=== PATIENT | female | born 1990 | race Caucasian/White ===

== ENCOUNTER 2016-11-11 14:14 | Emergency (ER) | payer BC ==
[~2016-11-11] VITALS: Ht 172.7 cm; Wt 120.6 kg
[2016-11-11 14:26] VITALS: TEMP 37.1; Ht 172.7 cm; Wt 120.6 kg
[2016-11-11] MEDS ORDERED: ALBUT/IPRATROP 3MG/0.5MG NEB 3 ML VIAL INH STA (16:24)
[2016-11-11 16:25] VITALS: O2SAT 98
[2016-11-11 16:39] LABS: BASO % 0.8 %; BASO ABS # 0.07 K/uL (0-0.2); COMPLETE YES; EOS % 2.3 %; HEMATOCRIT 40.1 % (37-47); IG% 0.1 %; LYMPH % 23.3 %; LYMPH ABS # 2.06 K/uL (1.2-3.4); MEAN CELL VOLUME 87.7 fL (80-100); MEAN CORPUSCULAR HEMOGLOBIN 30.6 pg (25-34); MEAN CORPUSCULAR HGB CONC 34.9 g/dl (32-36); MEAN PLATELET VOLUME 9.5 fL (7.4-10.4); MONO % 6.5 %; PLATELET COUNT 462 K/uL (130-400); RED BLOOD COUNT 4.57 M/uL (4.2-5.4); WHITE BLOOD COUNT 8.83 K/uL (4.8-10.8)
[2016-11-11 16:58] LABS: CALCIUM 9.5 mg/dl (8.5-10.1); CREATININE 0.84 mg/dl (0.60-1.20); POTASSIUM 3.7 mmol/L (3.5-5.1)
[2016-11-11 17:01] LABS: ALB/GLOB RATIO 0.8 (0.9-2)
[2016-11-11 17:04] LABS: PARTIAL THROMBOPLASTIN RATIO 1.7; PROTHROMBIN TIME (PATIENT) 10.4 SECONDS (9.0-12.0)
--- NOTE | 2016-11-11 17:10 | DIAGNOSTIC IMAGING REPORT ---
CHEST 2 VIEWS ROUTINE CLINICAL HISTORY: cough, sob dyspnea COMPARISON STUDY: No previous studies for comparison. FINDINGS: The bones soft tissues and hemidiaphragms are normal. The cardiomediastinal silhouette is normal. The lungs are clear. The pulmonary vasculature is normal. IMPRESSION: Negative chest. Electronically signed by: Cornel Agudelo M.D. 11/11/2016 5:09 PM Dictated Date/Time: 11/11/2016 5:08 PM
[2016-11-11] MEDS ORDERED: OPTIRAY 320 IV PRN (17:15)
--- NOTE | 2016-11-11 17:30 | DIAGNOSTIC IMAGING REPORT ---
CHEST CTA for PULMONARY ARTERIES CT DOSE: 549.18 mGy.cm HISTORY: Chest pain Dyspnea TECHNIQUE: Multiaxial CT images of the chest were performed following the intravenous administration of contrast to evaluate the pulmonary arteries. Maximal intensity projection images were also obtained. COMPARISON STUDY: None. FINDINGS: There is a normal caliber thoracic aorta with no evidence for dissection. There is no evidence for pulmonary embolus. No pleural effusions. No pneumothorax. The liver and spleen are unremarkable. No mediastinal or hilar lymphadenopathy. The central airways are patent. The lungs demonstrate an infiltrate left lower lobe primarily identified medially. IMPRESSION: 1. No evidence for pulmonary embolus. 2. Infiltrate medial aspect left lower lobe Electronically signed by: Cornel Agudelo M.D. 11/11/2016 5:29 PM Dictated Date/Time: 11/11/2016 5:26 PM
[2016-11-11] MEDS ORDERED: BCPILLS PO (17:31)
[2016-11-11] MEDS ORDERED: LEVO150T9 PO (17:31)
[2016-11-11] MEDS ORDERED: CETI10TA10 PO (17:32)
[2016-11-11] MEDS ORDERED: IBUP-1050 PO (17:33)
[2016-11-11] MEDS ORDERED: [UNRECOGNIZED DRUG - OTHER] PO (17:36)
[2016-11-11] MEDS ORDERED: GUAI100S16 PO (17:43)
[2016-11-11] MEDS ORDERED: METHYLPREDNISOLONE 125 MG VIAL IV STA (17:57)
[2016-11-11] MEDS ORDERED: AZITHROMYCIN 250 MG TAB PO STA (17:58)
[2016-11-11] MEDS ORDERED: ALBUTEROL HFA 8 GM INHALER INH ONE (18:00)
[2016-11-11] MEDS ORDERED: METH4PAK PO (18:01)
[2016-11-11] MEDS ORDERED: AZIT250T PO (18:01)
--- NOTE | 2016-11-11 18:02 | EMERGENCY ROOM VISIT NOTE ---
History First contact with patient: 16:12 Chief Complaint: SHORTNESS OF BREATH Stated Complaint: SOB,SEVERE COUGH History of Present Illness The patient is a 26 year old female who presents to the Emergency Room with complaints of cough and shortness of breath. The patient states that she has been ill for the past 3 weeks. She reports that initially, she had laryngitis and a sore throat. The symptoms resolved, and the patient later developed a severe cough. She reports that over the past 3-4 days, she has had a cough productive of greenish mucus as well as tightness in her chest. She states that she has had a few episodes of vomiting due to the cough. At times, she has had blood-tinged sputum. The patient does report that classmates have been sick with similar symptoms. Prior to the onset of symptoms, she did travel back from [place] on a bus trip. She does take control pills but denies smoking. She denies any history of asthma or history of blood clots. She denies any family history of blood clots. The patient denies any chest pain , abdominal pain, nausea, headache, earaches or neck pain. Review of Systems A complete 10-point Review of Systems was discussed with the patient, with pertinent positives and negatives listed in the History of Present Illness. All remaining Review of Systems questions can be considered negative unless otherwise specified. Social History Smoking Status: Never Smoker Current/Historical Medications Scheduled Azithromycin (Zithromax), 250 MG PO DAILY Control Pills ( Control Pills), 1 TAB PO DAILY Guaifenesin (Guaifenesin), 10 ML PO DAILY Ibuprofen (Advil), 400 MG PO DAILY Levothyroxine Sodium (Levothyroxine Sodium), 1 TAB PO DAILY Methylprednisolone (Medrol Dosepak), 0 PO DAILY [Sudophedrine], 1 CAP PO Q12 Scheduled PRN Cetirizine Hcl (Zyrtec), 10 MG PO DAILY PRN for ALLERGIC REACTION Allergies Coded Allergies: No Known Allergies (Unverified , 11/11/16) Physical Exam Vital Signs Date Time Temp Pulse Resp B/P Pulse Ox O2 Delivery O2 Flow Rate FiO2 11/11/16 18:12 96 20 154/86 98 Room Air 11/11/16 17:28 112 20 139/87 99 Room Air 11/11/16 16:28 111 11/11/16 16:25 98 Room Air 11/11/16 16:25 101 22 133/108 98 Room Air 11/11/16 14:29 99 Room Air 11/11/16 14:26 37.1 120 20 125/84 98 Room Air Physical Exam VITALS: Vitals are noted on the nurse's note and reviewed by myself. Vital signs stable. GENERAL: This is a 26-year-old female, in no acute distress, nondiaphoretic, well-developed well-nourished. SKIN: Capillary reflex less than 2 seconds. HEENT: Normocephalic. PERRLA. EOMI. Nares patent. Mucous membranes moist. Neck is supple without nuchal rigidity. No lymphadenopathy. HEART: Tachycardic, regular rhythm without murmurs gallops or rubs. LUNGS: Scattered inspiratory and expiratory wheezes throughout. ABDOMEN: Positive bowel sounds x 4. Soft, nontender to palpation. NEURO: Patient was alert and oriented to person place and time. Medical Decision & Procedures ER Provider Diagnostic Interpretation: CHEST 2 VIEWS ROUTINE FINDINGS: The bones soft tissues and hemidiaphragms are normal. The cardiomediastinal silhouette is normal. The lungs are clear. The pulmonary vasculature is normal. IMPRESSION: Negative chest. CHEST CTA for PULMONARY ARTERIES FINDINGS: There is a normal caliber thoracic aorta with no evidence for dissection. There is no evidence for pulmonary embolus. No pleural effusions. No pneumothorax. The liver and spleen are unremarkable. No mediastinal or hilar lymphadenopathy. The central airways are patent. The lungs demonstrate an infiltrate left lower lobe primarily identified medially. IMPRESSION: 1. No evidence for pulmonary embolus. 2. Infiltrate medial aspect left lower lobe Laboratory Results 11/11/16 16:27 Red Blood Count 4.57, Mean Corpuscular Volume 87.7, Mean Corpuscular Hemoglobin 30.6, Mean Corpuscular Hemoglobin Concent 34.9, Mean Platelet Volume 9.5, Neutrophils (%) (Auto) 67.0, Lymphocytes (%) (Auto) 23.3, Monocytes (%) (Auto) 6.5, Eosinophils (%) (Auto) 2.3, Basophils (%) (Auto) 0.8, Neutrophils # (Auto) 5.92, Lymphocytes # (Auto) 2.06, Monocytes # (Auto) 0.57, Eosinophils # (Auto) 0.20, Basophils # (Auto) 0.07 11/11/16 16:27 Test 11/11/16 16:27 11/11/16 16:35 White Blood Count 8.83 K/uL (4.8-10.8) Red Blood Count 4.57 M/uL (4.2-5.4) Hemoglobin 14.0 g/dL (12.0-16.0) Hematocrit 40.1 % (37-47) Mean Corpuscular Volume 87.7 fL (80-100) Mean Corpuscular Hemoglobin 30.6 pg (25-34) Mean Corpuscular Hemoglobin Concent 34.9 g/dl (32-36) Platelet Count 462 K/uL (130-400) Mean Platelet Volume 9.5 fL (7.4-10.4) Neutrophils (%) (Auto) 67.0 % Lymphocytes (%) (Auto) 23.3 % Monocytes (%) (Auto) 6.5 % Eosinophils (%) (Auto) 2.3 % Basophils (%) (Auto) 0.8 % Neutrophils # (Auto) 5.92 K/uL (1.4-6.5) Lymphocytes # (Auto) 2.06 K/uL (1.2-3.4) Monocytes # (Auto) 0.57 K/uL (0.11-0.59) Eosinophils # (Auto) 0.20 K/uL (0-0.5) Basophils # (Auto) 0.07 K/uL (0-0.2) RDW Standard Deviation 41.8 fL (36.4-46.3) RDW Coefficient of Variation 13.1 % (11.5-14.5) Immature Granulocyte % (Auto) 0.1 % Immature Granulocyte # (Auto) 0.01 K/uL (0.00-0.02) Prothrombin Time 10.4 SECONDS (9.0-12.0) Prothromb Time International Ratio 1.0 (0.9-1.1) Activated Partial Thromboplast Time 44.6 SECONDS (21.0-31.0) Partial Thromboplastin Ratio 1.7 Anion Gap 8.0 mmol/L (3-11) Est Creatinine Clear Calc Drug Dose 136.3 ml/min Estimated GFR () 109.6 Estimated GFR (Non- 94.6 BUN/Creatinine Ratio 14.0 (10-20) Calcium Level 9.5 mg/dl (8.5-10.1) Total Bilirubin 0.2 mg/dl (0.2-1) Aspartate Amino Transf (AST/SGOT) 22 U/L (15-37) Alanine Aminotransferase (ALT/SGPT) 47 U/L (12-78) Alkaline Phosphatase 96 U/L (45-117) Total Protein 8.5 gm/dl (6.4-8.2) Albumin 3.7 gm/dl (3.4-5.0) Globulin 4.8 gm/dl (2.5-4.0) Albumin/Globulin Ratio 0.8 (0.9-2) Bedside D-Dimer > 450 ng/mlFEU (0-450) Bedside Troponin I 0.000 ng/ml (0-0.045) Medications Administered Medications (Trade) Dose Ordered Sig/Marivel Route Start Time Stop Time Status Last Admin Dose Admin Albuterol/ Ipratropium (Duoneb) 3 ml NOW STAT INH 11/11/16 16:24 11/11/16 16:27 DC 11/11/16 16:38 3 ML Methylprednisolone Sodium Succinate (Solu-Medrol IV) 125 mg NOW STAT IV 11/11/16 17:57 11/11/16 17:59 DC 11/11/16 18:21 125 MG Azithromycin (Zithromax Tab) 500 mg NOW STAT PO 11/11/16 17:58 11/11/16 17:59 DC 11/11/16 18:20 500 MG Albuterol (Ventolin Hfa Inhaler) 2 puffs NOW ONCE INH 11/11/16 18:00 11/11/16 18:01 DC 11/11/16 18:21 2 PUFFS ECG Rate (beats per minute): 100 Rhythm: sinus tachycardia Findings: no acute ischemic change, no ectopy Comparison ECG Date: no prior available Medical Decision Differential diagnosis includes pneumonia, influenza, upper respiratory infection, asthma exacerbation, pulmonary embolism, pneumothorax, among others. The patient was evaluated as above. Labs were drawn and IV access was obtained. Imaging studies were performed and read by radiology as above. The patient was medicated with a DuoNeb treatment. The patient was reassessed multiple times during their stay in the emergency department and remained in stable condition. The patient is a 26-year-old female who presents today complaining of cough and shortness of breath. Labs revealed no leukocytosis, anemia or concerning electrolyte abnormalities. Troponin was not elevated. Chest x-ray was unremarkable. D-dimer was found to be elevated. Given the elevated d-dimer, tachycardia and the fact that the patient takes control pills and had a recent trip, I did choose to proceed with CTA of the chest. This was performed and did not show evidence of pulmonary embolism, but did show a left lower lobe pneumonia. The patient was persistently tachycardiac, possibly due to the albuterol treatment. She is afebrile. EKG showed a normal sinus rhythm. I do feel the patient can be treated at home with Levaquin. She was instructed to return here if she has worsening of her current condition or any new/concerning symptoms. Based on the patient's presentation, lab results, and imaging studies, I feel the patient is stable for outpatient treatment. Discharge instructions were reviewed with the patient. The patient verbalized understanding of my assessment and treatment plan and was discharged home in good condition. Impression Primary Impression: Pneumonia Departure Information Dispostion Home / Self-Care Condition GOOD Prescriptions Methylprednisolone (MEDROL DOSEPAK) 4 Mg Andi 0 PO DAILY, #1 PKT Prov: Kiarra Moralez .REGIS 11/11/16 Azithromycin (Zithromax) 250 Mg Tab 250 MG PO DAILY for 4 Days, #4 TAB Prov: Kiarra Moralez PA-C 11/11/16 Referrals No Doctor, Assigned (PCP) Patient Instructions My [facility] Additional Instructions You were prescribed Zithromax to be taken as prescribed for a total of 5 days. This is an antibiotic. All antibiotics have the potential to cause diarrhea. Stop this medication and contact a medical provider if you were to develop any significant adverse side effects including: wheezing, shortness of breath, passing out, vomiting, or a diffuse rash. Always take antibiotics as directed and COMPLETE the ENTIRE course regardless of the improvement of your symptoms. You have been prescribed a Medrol Dosepak. This is a steroid which will help decrease your inflammation. Take the medicine as prescribed. Take the ENTIRE 6 day course of the steroids. For pain/fever control, you can use the following [id number] medicines ( if >12 yo): - Regular strength (325mg/tab) Tylenol (acetaminophen) 2 tabs every 4-6 hours as needed. Do not exceed 12 tablets in a 24 hour period. Avoid taking more than 4 grams (4000 mg) of Tylenol per day. This includes any other sources of acetaminophen you may take on a regular basis. - Regular strength (200 mg/tab) Advil (ibuprofen) 1-2 tabs every 4-6 hours as needed. Do not exceed a dose of 3200 mg per day. Use the Ventolin inhaler as needed for cough/shortness of breath. Return to the emergency department with worsening shortness of breath, chest pain, high fevers or any other new/concerning symptoms. Problem Qualifiers Primary Impression: Pneumonia Pneumonia type: due to unspecified organism Laterality: left Lung location : lower lobe of lung Qualified Codes: J18.1 - Lobar pneumonia, unspecified organism
[2016-11-11 18:12] VITALS: BP 154/86; PULSE 96; O2SAT 98
== END 2016-11-11 18:27 | disposition home or self-care (01) ==
LOC: C.EDB 14:16
DX: J18.9 Pneumonia, unspecified organism (principal); Z79.3 Long term (current) use of hormonal contraceptives; Z79.899 Other long term (current) drug therapy